=== PATIENT | female | born 2000 | race Caucasian/White ===

== ENCOUNTER 2022-05-11 18:13 | Emergency (ER) | payer SELFPAY ==
[2022-05-11 19:07] LABS: BHCG - Serum Negative (NEGATIVE); Pregs Control Background? CLEAR/WHITE (CLR/WHITE); Pregs Control Bar Appear? YES (CONTROL BAR)
== END 2022-05-11 20:20 | disposition home or self-care (01) ==
LOC: CSHERS 18:13
DX: R55 Syncope and collapse (principal); M25.562 Pain in left knee; S20.224A Contusion of middle back wall of thorax, initial encounter; W22.8XXA Striking against or struck by other objects, initial encounter
CPT/HCPCS: 36415; 36416; 72070; 84703; 93005

== ENCOUNTER 2023-12-13 18:51 | Emergency (ER) | payer SELFPAY ==
[2023-12-13 19:29] LABS: Bilirubin Neg (Negative); Blood, Urine Negative (Negative); Clarity Clear (Clear); Glucose, Urine (Dipstick) Normal (Negative); Ketone, Urine 50 mg/dL (Negative); Leukocyte 25 (Negative); Nitrite Negative (Negative); Pregnancy Test - Urine (BHCG) POSITIVE (Negative); Pregu Control Background? CLEAR/WHITE (CLR/WHITE); Pregu Control Bar Appear? YES (CONTROL BAR); Protein, Urine (Dipstick) 15 mg/dl (Neg-Trace); Urobilinogen Normal mg/dL (Less than 2)
[2023-12-13 19:48] LABS: CAUTI Indications for Culture Pregnancy; RBC/HPF None Seen HPF (0-3); Squamous Epithelial 0-3 HPF (0-3); Transitional Epithelial 0-3 HPF (None Seen); WBC/HPF 0-3 HPF (0-3)
[2023-12-13 19:49] LABS: Bacteria/HPF 1+ HPF (None Seen); Mucous/LPF 2+ LPF (<2+)
[2023-12-13 19:50] LABS: Urine Culture Reflex Yes Yes
[2023-12-13 19:51] LABS: #Basophils 0.1 10x3/uL (0.0-0.2); #Eosinphils 0.1 10x3/uL (0.0-0.5); #Monocytes 0.5 10x3/uL (0.0-1.1); #Neutrophils 5.7 10x3/uL (1.5-8.4); %Basophils 0.5 % (0.0-2.0); %Eosinophils 1.4 % (0.0-6.0); %Lymphocytes 30.5 % (18.0-47.0); %Monocytes 4.9 % (0.0-10.0); %Neutrophils 62.5 % (40.0-75.0); Hematocrit 41.4 % (34.9-44.5); Mean Corpuscular HGB CONC 33.8 g/dL (32.0-36.0); Mean Corpuscular Hemoglobin 29.7 pg (27.0-33.0); Mean Corpuscular Volume 87.7 fl (81.6-98.3); Platelet Count 187 10x3/uL (150-450); RBC Distribution Width 12.8 % (11.5-14.5); Red Blood Cell (RBC) Count 4.72 10x6/uL (3.90-5.03); White Blood Cell (WBC) Count 9.1 10x3/uL (3.5-10.5)
== END 2023-12-13 22:25 | disposition home or self-care (01) ==
LOC: CSHERS 18:51
DX: O99.891 Other specified diseases and conditions complicating pregnancy (principal); R10.2 Pelvic and perineal pain; O99.511 Diseases of the respiratory system complicating pregnancy, first trimester; J45.909 Unspecified asthma, uncomplicated; Z3A.01 Less than 8 weeks gestation of pregnancy
CPT/HCPCS: 36415; 76817; 81001; 81025; 84702; 85025; 86900; 86901; 87086

== ENCOUNTER 2024-04-14 18:56 | Emergency (ER) | payer SELFPAY | END 2024-04-14 21:12 | disposition home or self-care (01) | LOC: CSHERS 18:56 | DX: R30.0 Dysuria (principal); F17.290 Nicotine dependence, other tobacco product, uncomplicated | CPT/HCPCS: 99283 ==